=== PATIENT | female | born 1940 | race Caucasian/White ===

== ENCOUNTER → 2021-07-15 | Day surgery (SDC) | payer OTHER ==
[~2021-07-15] MED LIST: CALCIUM PO; CATAPRES 0.1MG0.1 MG PO; COZAAR50 MG PO; CYANOCOBAL1000 MCG/1 INJ; DIOVAN160 MG PO; FISH OIL; HYDROCHLOROTHIA25 MG PO; LOPRESSOR50 MG PO; NITROSTAT0.4 MG SL; OMEPRAZOLE40 MG PO; PRAVACHOL40 MG PO; PRILOSEC OTC20 MG PO; PROAIR HFA8.5 GM INH; ROYAL JELLY; SYNTHROID25 MCG PO; VITAMIN D 11000 UNIT PO
== END | disposition home or self-care (01) ==
LOC: OR 07:33
DX: K29.50 Unspecified chronic gastritis without bleeding (principal); K31.9 Disease of stomach and duodenum, unspecified; K31.A0 Gastric intestinal metaplasia, unspecified; E66.3 Overweight; I10 Essential (primary) hypertension; E78.00 Pure hypercholesterolemia, unspecified; K31.819 Angiodysplasia of stomach and duodenum without bleeding; K21.00 Gastro-esophageal reflux disease with esophagitis, without bleeding; J45.909 Unspecified asthma, uncomplicated; Z88.5 Allergy status to narcotic agent; Z88.6 Allergy status to analgesic agent; Z88.0 Allergy status to penicillin; Z68.26 Body mass index [BMI] 26.0-26.9, adult; Z85.028 Personal history of other malignant neoplasm of stomach; Z20.822 Contact with and (suspected) exposure to COVID-19
CPT/HCPCS: J2001; J2704; J7040

== ENCOUNTER → 2021-10-13 | Outpatient (CLI) | payer OTHER | LOC: CT 10:17 | DX: K74.60 Unspecified cirrhosis of liver (principal); Z90.3 Acquired absence of stomach [part of]; Z90.49 Acquired absence of other specified parts of digestive tract | CPT/HCPCS: 36415; 82565; 84520; Q9967 ==

== ENCOUNTER → 2021-12-29 | Outpatient (CLI) | payer OTHER | LOC: MAMO 11:00 | DX: Z12.31 Encounter for screening mammogram for malignant neoplasm of breast (principal); D21.4 Benign neoplasm of connective and other soft tissue of abdomen; K90.9 Intestinal malabsorption, unspecified; E86.0 Dehydration; Z90.710 Acquired absence of both cervix and uterus | CPT/HCPCS: 77063; 77067 ==